=== PATIENT | male | born 1990 | race Caucasian/White ===

== ENCOUNTER 2020-04-17 18:21 | Inpatient (IN) ==
[2020-04-17] MEDS ORDERED: NORMAL SALINE 1,000 ML IV ONE (18:39)
[2020-04-17 18:56] LABS: Hematocrit 38.6 % (42.0-52.0); Mean Corpuscular Hemoglobin 33.7 pg (27-31); Mean Corpuscular Hgb Conc 33.7 g/dl (32-36); Mean Platelet Volume 9.9 fl (8-11.3); Neutrophil # 2.4 K/mm3 (1.3-6.0); Neutrophil % 65.4 % (42-75.0); Platelet Count 126 K/mm3 (150-450); Red Blood Count 3.86 M/mm3 (4.7-6.0); Red Cell Distribution Width 12.9 % (11.5-14.0); White Blood Count 3.6 K/mm3 (4.0-10.5)
[2020-04-17 19:10] LABS: Albumin * 4.1 gm/dl (3.4-5.0); Anion Gap 21.1 mmol/L (6.8-13.8); BUN/Creatinine Ratio 9.5 (9.0-21.6); Ca. Corrected For Albumin 9.2 mg/dL (8.4-10.2); Calcium * 9.6 mg/dL (7.9-10.9); Carbon Dioxide 17.6 mmol/L (24-32.6); Potassium 3.7 mmol/L (3.4-4.6); Total Protein 7.4 gm/dL (6.2-8.2)
--- NOTE | 2020-04-17 19:13 | ERNOTE ---
Syncope ER HPI Date of Service: 04/17/20 Stated Complaint: Seizure Time Seen by Provider: 04/17/20 18:28 Source: patient, family, RN notes reviewed Exam Limitations: no limitations Allergies/Adverse Reactions: Allergies No Known Allergies Allergy (Unverified 04/17/20 18:27) Home Medications: HOME MEDICATIONS NK 04/17/20 [Last Taken Unknown] - History of Present Illness Narrative: Asif is a 29 year old male brought to the ED by ambulance after a syncopal episode. He was sitting outdoors, talking with his family when he reportedly tensed up, said he couldn't breathe, had a few seconds of "convulsions," and then lost consciousness and fell out of his chair. He woke up shortly after falling to the ground. He struck his face on the concrete, causing abrasions to his lip and chin. He states that he felt fine prior to the episode. He had drank 3 beers. He has no prior history of syncopal episodes or seizure activity. He is from [place] and is in [place] for a . Last tetanus vaccination 2011. Prior Episodes: Present: single episode today Symptoms prior to episode: Present: none Activity at time of episode: Present: sitting Character of event: Present: brief (seconds), confused after event - briefly. Absent: incontinent Location of Injury: Present: face Current Symptoms: Present: back to normal Prior Treament: Denies: recently seen, similar symptoms before Review of Systems - Review of Systems Constitutional: Absent: recent illness, fever EYE: Absent: eye pain, vision changes ENT: Absent: ear pain, nose congestion, nasal drainage, sore throat Respiratory: Absent: shortness of breath, cough Cardiology: Absent: chest pain, palpitations Gastrointestinal/Abdominal: Absent: nausea, vomiting, abdominal pain Genitourinary: Present: no symptoms reported Musculoskeletal: Present: back pain. Absent: joint pain, joint swelling Skin: Absent: lesions, lumps, change in color Neurological: Absent: headache, dizziness/light-headedness Endocrine: Present: no symptoms reported Hematologic/Lymphatic: Absent: easy bruising, easy bleeding Psych: Present: no symptoms reported Medical History (Last Reviewed 04/17/20 @ 20:16 by Nessa Robledo NP) No pertinent past medical history Surgical History: Surgical History (Last Reviewed 04/17/20 @ 20:16 by Nessa Robledo NP) No pertinent past surgical history Family History: Family History (Last Reviewed 04/17/20 @ 20:16 by Nessa Robledo NP) Other No pertinent family history Social History: (Last Reviewed 04/17/20 @ 20:16 by Nessa Robledo NP) Tobacco: Smoking Status: Current every day smoker Smoking cigarettes per day: 10 Alcohol: Alcohol type: beer, hard liquor alcohol intake frequency: 3 or more drinks per day Substance Use: substance use type: does not use Physical Exam - Physical Exam General Appearance: Present: alert, mild distress, thin Head Exam: Present: lacerations - lower lip, other - abrasions to upper lip and chin. Absent: active bleeding, ecchymosis Eye Exam: Normal inspection: bilateral, PERRL: bilateral, EOMI: bilateral Ears, Nose, Throat: Present: normal ENT inspection, normal pharynx Neck: Present: normal inspection, nontender, supple, full range of motion. Absent: tender posterior midline Respiratory: Present: no respiratory distress, normal breath sounds, no accessory muscle use, lungs clear Cardiovascular/Chest: Present: regular rate, rhythm, no murmur, normal peripheral pulses Extremity Exam: Present: normal inspection, normal range of motion Neurological Exam: Present: alert, oriented, normal mood/affect, no motor/sensory deficits Skin Exam: Present: warm/dry, pallor Progress - Results and Orders Patient's Lab Results:: I have reviewed the patient's lab results. - Vital Signs Patient's Vital Signs:: I have reviewed the patient's vital signs. Vital Signs: Vital Signs 04/17/20 18:23 Pulse Rate 110 H Respiratory Rate 28 H Blood Pressure 134/104 H O2 Sat by Pulse Oximetry 100 - EKG EKG #1 EKG: NSR EKG read: Reviewed by me - CT/Ultrasound CT/Ultrasound Narrative: Noncontrast head CT is without acute findings per radiologist report - Progress/Reassessment Chief Complaint: Syncopal Episode Progress:: Unchanged Progress Note-Subjective: 04/17/20 19:40 The patient was about to be discharged with a diagnosis of syncope when he had approximately a minute of generalized seizure activity followed by several mi nutes of disorientation and combative behavior. He was given Ativan 1 mg IVP. He was incontinent of urine during the episode. His brother arrived a short time later. He reports that the patient is an alcoholic and has drastically reduced his alcohol intake while he has been traveling out of town with his family for the past 2 days. The brother also reports that the jerking motions the patient had when the ambulance was called lasted more than just a few seconds and was likely a seizure. 04/17/20 20:11 The patient is alert and oriented. We discussed that his seizures are likely d/t alcohol withdrawal, which may become severe since he began having seizures while he still had an elevated blood alcohol. He is cooperative about having a CT scan but he is becoming argumentative about having any additional care. 04/17/20 20:54 CT scan was without acute findings. Discussed admission with patient for monitoring and treatment of additional withdrawal symptoms and he is reluctantly agreeable at this point to staying overnight. Call placed to Dr. Alaniz and message left. 04/17/20 21:24 Dr. Alaniz agreed to admit the patient to SCU. Keppra 1000mg IV and a Banana bag ordered. Ativan will be scheduled every 4 hours. Departure Clinical Impression: Alcohol withdrawal seizure Qualifiers: Complication of substance-induced condition: uncomplicated Qualified Code(s): F10.230 - Alcohol dependence with withdrawal, uncomplicated - Departure Disposition: Still a patient Condition: Stable
[2020-04-17] MEDS ORDERED: LORazepam 2 MG/ML DISP.SYRIN ONE (19:42)
[2020-04-17] MEDS ORDERED: LORazepam 2 MG/ML DISP.SYRIN IV ONE ×2 (19:42→21:48)
[2020-04-17 20:08] LABS: Urine Bilirubin Negative (NEGATIVE); Urine Blood Negative /ul (NEGATIVE); Urine Ketone 5 mg/dL (NEGATIVE); Urine Nitrite Negative (NEGATIVE); Urine Protein Negative (NEGATIVE); Urine Urobilinogen Normal (NORMAL); Urine pH 7.5 pH (5.0-7.0)
[2020-04-17 20:19] LABS: Urine Appearance Clear (CLEAR); Urine Bacteria TRACE; Urine Color Yellow; Urine RBC TRACE /hpf (0-5); Urine WBC TRACE /hpf (0-5)
[2020-04-17 20:21] LABS: Cocaine Ur Negative (NEGATIVE); Urine Barbiturate Negative (NEGATIVE); Urine Benzodiazepines Negative (NEGATIVE); Urine Opiates Negative (NEGATIVE); Urine PCP Negative (NEGATIVE); Urine THC Negative (NEGATIVE)
[2020-04-17] MEDS ORDERED: KETOROLAC TROMETHAMINE 30 MG/ML VIAL IV ONE (20:58)
[2020-04-17] MEDS ORDERED: MULTIVIT INFUSN,ADULT 4,VIT K 10 ML, THIAMINE HCL 100 MG in NORMAL SALINE 1,000 ML IV SCH (21:30)
[2020-04-17] MEDS: LORazepam 2 MG/ML DISP.SYRIN IV SCH (22:00)
[2020-04-17] MEDS ORDERED: KETOROLAC TROMETHAMINE 30 MG/ML VIAL IV PRN (23:26)
--- NOTE | 2020-04-17 23:31 | HP ---
Chief Complaint - Chief Complaint Date of Service: 04/17/20 Time of Service: 23:27 Chief Complaint: seizure History of Present Illness: History obtained via ERP. He lives in [place], and is here for a . His brother stated he is a very heavy drinker of hard liquor and beer. He was at a family gathering and had seizure type activity and fell out of his chair, and was brought here. He again had seizure activity in the ED that lasted about a minute. He received a dose of ativan while in the ED. Workup showed an ETOH level of 12 mg/dL, elevated transaminases with AST of 187, ALT of 131. His vitals have been normal. He received ativan just prior to my assessment, and he did not waken for exam. Medical History (Last Reviewed 04/17/20 @ 20:16 by Nessa Robledo NP) No pertinent past medical history Surgical History: Surgical History (Last Reviewed 04/17/20 @ 20:16 by Nessa Robledo NP) No pertinent past surgical history Family History: Family History (Last Reviewed 04/17/20 @ 20:16 by Nessa Robledo NP) Other No pertinent family history Social History: (Last Reviewed 04/17/20 @ 20:16 by Nessa Robledo NP) Tobacco: Smoking Status: Current every day smoker Smoking cigarettes per day: 10 Alcohol: Alcohol type: beer, hard liquor alcohol intake frequency: 3 or more drinks per day Substance Use: substance use type: does not use Review Of Systems (GEN) - Review of Systems Generalized/Overall Review: Present: No Symptoms Reported - patient unable to contribute Allergies/Adverse Reactions: Allergies Allergy/AdvReac Type Severity Reaction Status Date / Time No Known Allergies Allergy Unverified 04/17/20 18:27 Home Medications: HOME MEDICATIONS NK 04/17/20 [Last Taken Unknown] Exam - Exam Vital Signs: Vital Signs - Last Taken Temp 36.8 C 04/17/20 22:35 Pulse 89 04/17/20 22:52 Resp 16 04/17/20 22:35 BP 133/70 04/17/20 22:35 Pulse Ox 97 04/17/20 22:35 Constitutional: Present: No distress, Somnolent ENT Exam: Present: other - mild abrasion on nose Respiratory: Present: normal breath sounds, no respiratory distress Cardiovascular/Chest: Present: regular rate, rhythm Abdomen: Present: soft Extremity: Absent: lower extremity edema Diagnostic Studies: Abnormal Lab Results 04/17/20 04/17/20 04/17/20 Range/Units 18:40 18:50 18:50 WBC 3.6 L (4.0-10.5) K/mm3 RBC 3.86 L (4.7-6.0) M/mm3 Hgb 13.0 L (13.5-18.0) gm/dL Hct 38.6 L (42.0-52.0) % MCH 33.7 H (27-31) pg Plt Count 126 L (150-450) K/mm3 Lymphocytes % 15.5 L (20-51) % Monocytes % 16.3 H (0.0-9) % Basophils % 1.4 H (0.0-1.0) % Lymphocytes # 0.56 L (1.5-3.5) k/mm3 Carbon Dioxide 17.6 L (24-32.6) mmol/L Anion Gap 21.1 H (6.8-13.8) mmol/L AST 187 H (0-48) U/L ALT 131 H (19-67) U/L Ethyl Alcohol 12.0 H (0.0-10.0) mg/dL Laboratory Results WBC 3.6 K/mm3 (4.0-10.5) L 04/17/20 18:50 RBC 3.86 M/mm3 (4.7-6.0) L 04/17/20 18:50 Hgb 13.0 gm/dL (13.5-18.0) L 04/17/20 18:50 Hct 38.6 % (42.0-52.0) L 04/17/20 18:50 MCV 100.0 fl (78-100) 04/17/20 18:50 MCH 33.7 pg (27-31) H 04/17/20 18:50 MCHC 33.7 g/dl (32-36) 04/17/20 18:50 RDW 12.9 % (11.5-14.0) 04/17/20 18:50 Plt Count 126 K/mm3 (150-450) L 04/17/20 18:50 MPV 9.9 fl (8-11.3) 04/17/20 18:50 Immature Gran % (Auto) 0.30 % (0.001-0.429) 04/17/20 18:50 Immature Gran # (Auto) 0.01 K/mm3 (0.000-0.0310) 04/17/20 18:50 Neutrophils % 65.4 % (42-75.0) 04/17/20 18:50 Lymphocytes % 15.5 % (20-51) L 04/17/20 18:50 Monocytes % 16.3 % (0.0-9) H 04/17/20 18:50 Eosinophils % 1.1 % (0.0-3.0) 04/17/20 18:50 Basophils % 1.4 % (0.0-1.0) H 04/17/20 18:50 Nucleated RBC % 0.0 k/mm3 (0-1) 04/17/20 18:50 Neutrophils # 2.4 K/mm3 (1.3-6.0) 04/17/20 18:50 Lymphocytes # 0.56 k/mm3 (1.5-3.5) L 04/17/20 18:50 Monocytes # 0.6 k/mm3 (0.0-1.0) 04/17/20 18:50 Eosinophils # 0.0 k/mm3 (0.0-0.7) 04/17/20 18:50 Absolute Basophils 0.1 k/mm3 (0.0-0.1) 04/17/20 18:50 Sodium 132 mmol/L (132-142) 04/17/20 18:50 Plasma Sodium 132 mmol/L (130-142) 04/17/20 18:50 Potassium 3.7 mmol/L (3.4-4.6) 04/17/20 18:50 Chloride 97 mmol/L (97-106) 04/17/20 18:50 Carbon Dioxide 17.6 mmol/L (24-32.6) L 04/17/20 18:50 Anion Gap 21.1 mmol/L (6.8-13.8) H 04/17/20 18:50 BUN 9 mg/dL (6-23) 04/17/20 18:50 Creatinine 0.95 mg/dL (0.4-1.4) 04/17/20 18:50 Est GFR (Non-Af Amer) 98 mL/min (60-130) 04/17/20 18:50 BUN/Creatinine Ratio 9.5 (9.0-21.6) 04/17/20 18:50 Random Glucose 99 mg/dL (70-110) 04/17/20 18:50 Calcium 9.6 mg/dL (7.9-10.9) 04/17/20 18:50 Calcium Adj for Albumin 9.2 mg/dL (8.4-10.2) 04/17/20 18:50 Total Bilirubin 1.0 mg/dL (0.0-1.1) 04/17/20 18:50 AST 187 U/L (0-48) H 04/17/20 18:50 ALT 131 U/L (19-67) H 04/17/20 18:50 Alkaline Phosphatase 117 U/L (50-170) 04/17/20 18:50 Total Protein 7.4 gm/dL (6.2-8.2) 04/17/20 18:50 Albumin 4.1 gm/dl (3.4-5.0) 04/17/20 18:50 Urine Color Yellow 04/17/20 20:00 Urine Appearance Clear (CLEAR) 04/17/20 20:00 Urine pH 7.5 pH (5.0-7.0) 04/17/20 20:00 Ur Specific [place] 1.010 SP.GR. (1.005-1.030) 04/17/20 20:00 Urine Protein Negative mg/dL (NEGATIVE) 04/17/20 20:00 Urine Glucose (UA) Negative mg/dL (NEGATIVE) 04/17/20 20:00 Urine Ketones 5 mg/dL (NEGATIVE) 04/17/20 20:00 Urine Blood Negative /ul (NEGATIVE) 04/17/20 20:00 Urine Nitrate Negative (NEGATIVE) 04/17/20 20:00 Urine Bilirubin Negative mg/dl (NEGATIVE) 04/17/20 20:00 Urine Urobilinogen Normal EU/dl (NORMAL) 04/17/20 20:00 Ur Leukocyte Esterase Negative /ul (NEGATIVE) 04/17/20 20:00 Urine RBC Trace /hpf (0-5) 04/17/20 20:00 Urine WBC Trace /hpf (0-5) 04/17/20 20:00 Ur Epithelial Cells Trace /hpf (0-5) 04/17/20 20:00 Urine Bacteria Trace (NONE) 04/17/20 20:00 Urine Culture Comments No culture indicated 04/17/20 20:00 Urine Opiates Screen Negative (NEGATIVE) 04/17/20 20:00 Barbiturate Screen Negative (NEGATIVE) 04/17/20 20:00 Ur Phencyclidine Scrn Negative (NEGATIVE) 04/17/20 20:00 Urine Amphetamine Negative (NEGATIVE) 04/17/20 20:00 U Benzodiazepines Scrn Negative (NEGATIVE) 04/17/20 20:00 Urine Cocaine Screen Negative (NEGATIVE) 04/17/20 20:00 Urine Marijuana (THC) Negative (NEGATIVE) 04/17/20 20:00 Ethyl Alcohol 12.0 mg/dL (0.0-10.0) H 04/17/20 18:40 Assessment/Plan - Assessment/Plan (1) Alcohol withdrawal seizure Assessment: He had a witnessed seizure in the ED. He reportedly drinks heavily, and decreased the amount of alcohol intake while here for the . CIWA scores were low while in the ED. ETOH was 12 mg/dL. If he had an alcohol withdrawal seizure while still consuming alcohol, he is at risk for severe withdrawal. He is only 29, so there is more concern for severe withdrawal if he's been seizing. He is currently comfortable, and vitals are normal, so he is currently managed with fairly low dose ativan, 1 mg. will schedule 1 mg q4h, and add 1 mg ativan q4h prn, so he can get it every 2 hours if needed. Will need to verify his alcohol intake, and when he decreased the intake, when he is more alert. Continue daily banana bag, folate, and 110 cc/hr NS. Problem: Acute Qualifiers: Complication of substance-induced condition: uncomplicated Qualified Code(s): F10.230 - Alcohol dependence with withdrawal, uncomplicated (2) Alcohol abuse Assessment: He is anemic and platelets are low, likely from alcoholism. AST and ALT are elevated, though not significantly at 187 and 131, respectively. Continue thiamine and folic acid replacement, and fluids between daily banana bags. Problem: Chronic
[2020-04-18] MEDS: LORazepam 2 MG/ML DISP.SYRIN IV SCH ×4 (01:08→13:25)
[2020-04-18] MEDS: LORazepam 2 MG/ML DISP.SYRIN IV PRN ×2 (03:40→07:04)
[2020-04-18] MEDS ORDERED: NORMAL SALINE 1,000 ML IV PRN (07:28)
--- NOTE | 2020-04-18 08:08 | PN ---
Subjective - Date and Time Seen Date: 04/18/20 Time: 07:57 Subjective Narrative: He is still somnolent, but is able to answer a few questions. His nurse reports he is restless and can't get comfortable. Reports drinking until yesterday. States not liking the straps on his limbs. Feels restless from back pain. No recent illness. Objective - Review of Systems Generalized/Overall Review: Reports: No Symptoms Reported - Vitals Vitals: Last Vital Signs Temp 36.9 C 04/18/20 04:30 Pulse 79 04/18/20 07:45 Resp 16 04/18/20 07:45 BP 137/92 H 04/18/20 07:45 Pulse Ox 98 04/18/20 07:45 - Abnormal Lab Findings Abnormal Lab Findings: Abnormal Lab Results 04/17/20 04/17/20 04/17/20 Range/Units 18:40 18:50 18:50 WBC 3.6 L (4.0-10.5) K/mm3 RBC 3.86 L (4.7-6.0) M/mm3 Hgb 13.0 L (13.5-18.0) gm/dL Hct 38.6 L (42.0-52.0) % MCH 33.7 H (27-31) pg Plt Count 126 L (150-450) K/mm3 Lymphocytes % 15.5 L (20-51) % Monocytes % 16.3 H (0.0-9) % Basophils % 1.4 H (0.0-1.0) % Lymphocytes # 0.56 L (1.5-3.5) k/mm3 Carbon Dioxide 17.6 L (24-32.6) mmol/L Anion Gap 21.1 H (6.8-13.8) mmol/L AST 187 H (0-48) U/L ALT 131 H (19-67) U/L Ethyl Alcohol 12.0 H (0.0-10.0) mg/dL - Exam Constitutional: Present: No distress Respiratory: Present: normal breath sounds, no respiratory distress Cardiovascular/Chest: Present: regular rate, rhythm Extremity: Absent: lower extremity edema Neurologic: Present: other - confusion - states not liking the straps on his limbs, but only has BP cuff and pulse ox - no straps present Assessment/Plan - Problems/Diagnosis (1) Alcohol withdrawal seizure Problem: Acute Qualifiers: Complication of substance-induced condition: uncomplicated Qualified Code(s): F10.230 - Alcohol dependence with withdrawal, uncomplicated Narrative: He was given a dose of 1,000 mg keppra last night. He has received 2 doses of 1 mg ativan over the last 7 hours. He is displaying some confusion this morning, stating he doesn't like the straps on his limbs, but none are present - only the BP cuff and pulse ox. Will continue 1 mg ativan IV q4h prn alternating with 1 mg ativan q4h scheduled. Will need to get more info when he is more awake regarding the amount of alcohol consumption, and when his intake decreased. Can transfer to the floor. He is at risk for severe alcohol withdrawal, since he seized while still consuming. Highest CIWA score has been 6. If he does not have significant symptoms today, if no recurrent seizure, and he wants to go later today prior to withdrawal symptoms worsening, he may potentially go. If he wants to stop drinking and is CIWA scores worsen, he will need continued hospitalization and IV medications. (2) Alcohol abuse Problem: Chronic (3) Anemia Problem: Acute Narrative: MCV is 100, which is upper limit of normal range, so he's borderline macrocytic. Likely from alcohol abuse. continue folate supplement.
[2020-04-18] MEDS ORDERED: FOLIC ACID 1 MG TABLET PO SCH (09:00)
[2020-04-18] MEDS ORDERED: FOLIC ACID 5 MG/ML VIAL IV SCH (09:00)
--- NOTE | 2020-04-18 15:44 | DS ---
(1) Alcohol withdrawal seizure Problem: Acute Qualifiers: Complication of substance-induced condition: uncomplicated Qualified Code(s): F10.230 - Alcohol dependence with withdrawal, uncomplicated (2) Alcohol abuse Problem: Chronic (3) Anemia Problem: Acute Date of Discharge:: 04/18/20 Hospital Course: Patient with past medical history of heavy alcohol use presented to the ER after seizure type activity. He lives in [place] and was here for a family . Family member state he has somewhat decreased his alcohol intake down from a bottle of liquor a day, long-term. In the ED, the seizure was witnessed and lasted for about a minute. After the seizure, he was a bit combative and incoherent. He was given 1,000 mg of Keppra, and IV Ativan every 4 hours. He had some mild anemia, which is felt to be due to the alcoholism. Admission EtOH was 12 mg/dL. He was admitted to the SCU, as it was felt he could have significant withdrawal symptoms. His vitals were normal overnight and his highest CIWA score was 8. The afternoon after admission, he was ready to leave. Discussion was had with him regarding ongoing alcohol use. He reports he will go back to drinking after he leaves. With the amount of alcohol he intakes regularly, he is at risk of serious withdrawal symptoms if he continues abstaining. This was discussed with him and his brother. His brother reports having had multiple different types of confrontations to get him to quit drinking, none of which have been successful. Will discharge with 500 mg Keppra daily. Unfortunately, he is precontemplative regarding alcohol cessation at this time. Procedures Performed: none Results and Findings: Lab Pending Results 04/17/20 18:40: Ethyl Alcohol 12.0 H 04/17/20 18:50: WBC 3.6 L, RBC 3.86 L, Hgb 13.0 L, Hct 38.6 L, MCV 100.0, MCH 33.7 H, MCHC 33.7, RDW 12.9, Plt Count 126 L, MPV 9.9, Immature Gran % (Auto) 0.30, Immature Gran # (Auto) 0.01, Neutrophils % 65.4, Lymphocytes % 15.5 L, Monocytes % 16.3 H, Eosinophils % 1.1, Basophils % 1.4 H, Nucleated RBC % 0.0, Neutrophils # 2.4, Lymphocytes # 0.56 L, Monocytes # 0.6, Eosinophils # 0.0, Absolute Basophils 0.1 04/17/20 18:50: Sodium 132, Plasma Sodium 132, Potassium 3.7, Chloride 97, Carbon Dioxide 17.6 L, Anion Gap 21.1 H, BUN 9, Creatinine 0.95, Est GFR (Non-Af Amer) 98, BUN/Creatinine Ratio 9.5, Random Glucose 99, Calcium 9.6, Calcium Adj for Albumin 9.2, Total Bilirubin 1.0, AST 187 H, ALT 131 H, Alkaline Phosphatase 117, Total Protein 7.4, Albumin 4.1 04/17/20 20:00: Urine Color Yellow, Urine Appearance Clear, Urine pH 7.5, Ur Specific [place] 1.010, Urine Protein Negative, Urine Glucose (UA) Negative, Urine Ketones 5, Urine Blood Negative, Urine Nitrate Negative, Urine Bilirubin Negative, Urine Urobilinogen Normal, Ur Leukocyte Esterase Negative, Urine RBC Trace, Urine WBC Trace, Ur Epithelial Cells Trace, Urine Bacteria Trace, Urine Culture Comments No culture indicated 04/17/20 20:00: Urine Opiates Screen Negative, Barbiturate Screen Negative, Ur Phencyclidine Scrn Negative, Urine Amphetamine Negative, U Benzodiazepines Scrn Negative, Urine Cocaine Screen Negative, Urine Marijuana (THC) Negative Discharge Location: Home Disposition: Home self-care Condition: Stable Discharge Activity: Activity as tolerated Discharge Diet: General/regular food Prescriptions (Any new or edited meds): levETIRAcetam [Keppra] 750 mg PO DAILY #90 tab Transmission Status: Pending to [facility] #[id number] Complete Home Medications List: Complete Home Medication List: levETIRAcetam [Keppra] 750 mg PO DAILY #90 tab 04/18/20
[2020-04-18 16:13] VITALS: BP 126/94
[2020-04-18] MEDS ORDERED: MULTIVIT INFUSN,ADULT 4,VIT K 10 ML, THIAMINE HCL 100 MG in NORMAL SALINE 1,000 ML IV SCH (21:00)
== END 2020-04-18 16:25 | disposition home or self-care (01) | DRG 101 ==
LOC: ER 18:21 → SCU 21:24 → MS 04-18 08:51
PROVIDERS: ADMIT Family Medicine; ATTEND Family Medicine
CPT/HCPCS: 36415; 70450; 80053; 80307; 81001; 85025; 93005; 96374; 96375; 99284; 99285